=== PATIENT | male | born 1985 | race Caucasian/White ===

== ENCOUNTER → 2016-08-27 | Emergency (ER) | payer OTHER ==
[~2016-08-27] VITALS: Ht 177.8 cm; Wt 61.2 kg
[~2016-08-27] MED LIST: ALBUTEROL SULF8.5 GM INH; ATIVAN1 MG ORAL; ATIVAN2 MG PO; CELEXA20 MG PO; DEPAKOTE250 MG PO; FLOVENT2 PUFF1 INH; GEODON20 MG PO; LORazepam 1mg tab ORAL ONE; WELLBUTRIN SR150 MG PO; ZOFRAN ODT4 MG PO
[2016-08-27 20:07] VITALS: BP 141/95
--- NOTE | 2016-08-27 23:09 | Emergency Room Report ---
History of Present Illness General Chief Complaint: Medication Refill Source: Patient Present Illness HPI Patient is a 31-year-old male who presented after increased anxiety. Patient had run out of his medication which included Ativan. Patient stated he was unable to see his psychiatrist for the next of to 3 days patient is requesting medication refill.The patient denies suicidal thoughts. He denies any auditory or visual hallucinations this time. Allergies: Coded Allergies: No Known Allergies (Unverified , 07/02/12) Patient History Past Medical History: see triage record Reviewed Nursing Documentation: PMH: Agreed, PSxH: Agreed Nursing Documentation-PMH Past Medical History: No History, Except For Hx Asthma: Yes Hx Seizures: Yes - POSSIBLE Review of Systems All Other Systems: negative except mentioned in HPI Physical Exam Vital Signs Date Time Temp Pulse Resp B/P Pulse Ox O2 Delivery O2 Flow Rate FiO2 08/27/16 20:01 97.7 89 14 141/95 99 Room Air General Appearance: well appearing, no apparent distress, alert, GCS 15 Head: normocephalic, atraumatic ENT: hearing grossly normal, normal voice Neck: full range of motion, supple Respiratory: no respiratory distress, speaking full sentences Cardiovascular #1: normal inspection, regular rate, rhythm Gastrointestinal: normal inspection Musculoskeletal: normal inspection, no calf tenderness Neurologic: normal inspection, alert, oriented x3, responsive, ship pilot III-XII nml as tested, normal gait Psychiatric: mood/affect normal, anxious Skin: no rash Medical Decision Making Diagnostic Impression: Primary Impression: Anxiety Additional Impression: Benzodiazepine dependence ER Course The patient presented for medication refill. Patient was noted in history of anxiety. Patient appears to be mildly anxious. The patient was advised that we would not refill his medications for that he should see his primary care physician for this. The patient was given oral Ativan. Patient said he would call a responsible libertarian to pick him up. The patient is advised to follow up with primary care doctor in 1-2 days. Patient is advised to return if any worsening condition or if any changes in status that are concerning. Last Vital Signs Date Time Temp Pulse Resp B/P Pulse Ox O2 Delivery O2 Flow Rate FiO2 08/27/16 20:07 97.7 89 14 141/95 99 Room Air Status: improved Disposition: HOME, SELF-CARE Condition: Stable Referrals: NON PHYSICIAN (PCP) Patient Instructions: Panic Attacks Raf Glover Aug 27, 2016 23:09
== END | disposition home or self-care (01) ==
LOC: EMR 20:30
DX: F41.9 Anxiety disorder, unspecified (principal); F13.20 Sedative, hypnotic or anxiolytic dependence, uncomplicated; J45.909 Unspecified asthma, uncomplicated
CPT/HCPCS: 99283

== ENCOUNTER 2016-10-09 22:43 | Emergency (ER) | payer OTHER ==
[~2016-10-09] VITALS: Ht 177.8 cm; Wt 59.0 kg
[~2016-10-09 22:43] MED LIST changes: -DEPAKOTE250 MG PO; -LORazepam 1mg tab ORAL ONE
[2016-10-09 23:31] VITALS: BP 113/82
[2016-10-09] MEDS ORDERED: DEPAKOTE250 MG PO (23:37)
--- NOTE | 2016-10-09 23:58 | Emergency Room Report ---
History of Present Illness General Chief Complaint: Medication Refill Source: Patient Present Illness HPI Is a 31-year-old male with a history of anxiety. He is taking 3 mg of lorazepam a day. He said he is out of his since yesterday. He felt anxious and hasn't panic attack. He said that he has refill for tomorrow but be something right now. He denies suicidal thought homicidal thought. Unable to sleep because of anxiety. No seizure activity. Allergies: Coded Allergies: No Known Allergies (Unverified , 07/02/12) Patient History Past Medical History: see triage record, old chart reviewed Past Surgical History: none Pertinent Family History: none Social History: Reports: smoking Immunizations: other Reviewed Nursing Documentation: PMH: Agreed, PSxH: Agreed Nursing Documentation-PMH Hx Asthma: Yes Hx Seizures: Yes - POSSIBLE Review of Systems Eye: Denies: blurred vision, eye pain ENT: Denies: ear pain, nose congestion, throat swelling Respiratory: Denies: cough, shortness of breath Cardiovascular: Denies: chest pain, palpitations Gastrointestinal: Denies: abdominal pain, diarrhea, nausea, vomiting Musculoskeletal: Denies: back pain, joint pain Skin: Denies: rash Neurological: Denies: headache, numbness Endocrine: Denies: increased thirst, increased urine Hematologic/Lymphatic: Denies: easy bruising All Other Systems: negative except mentioned in HPI Physical Exam Vital Signs Date Time Temp Pulse Resp B/P Pulse Ox O2 Delivery O2 Flow Rate FiO2 10/09/16 23:31 97.7 87 18 113/82 97 Room Air vitals normal. Sp02 EP Interpretation: reviewed, normal General Appearance: well appearing, no apparent distress, alert Head: normocephalic, atraumatic Eyes: bilateral eye EOMI, bilateral eye PERRL ENT: hearing grossly normal, normal pharynx Neck: full range of motion, supple, no meningismus Respiratory: chest non-tender, lungs clear, normal breath sounds Cardiovascular #1: regular rate, rhythm, no murmur Gastrointestinal: normal bowel sounds, non tender, no mass, no organomegaly, no bruit, non-distended Musculoskeletal: back normal, gait/station normal, normal range of motion Psychiatric: anxious Skin: warm/dry Medical Decision Making Diagnostic Impression: Primary Impression: Anxiety Additional Impressions: Benzodiazepine dependence Encounter for medication refill ER Course patient here for anxiety and has benzodiazepine dependence. I gave him a dose of Ativan here. He can followup tomorrow morning for refill. No evidence of seizure activity. Last Vital Signs Date Time Temp Pulse Resp B/P Pulse Ox O2 Delivery O2 Flow Rate FiO2 10/09/16 23:31 97.7 87 18 113/82 97 Room Air Status: improved Disposition: HOME, SELF-CARE Condition: Stable Additional Instructions: Followup with your DrJay tomorrow for refills. Return if symptom worsen. DAMEON ALDANA M.D. Oct 09, 2016 23:58
[2016-10-10] MEDS ORDERED: LORazepam 1mg tab ORAL ONE
[2016-10-10 00:07] VITALS: BP 113/82
== END 2016-10-10 00:05 | disposition home or self-care (01) ==
LOC: EMR 10-10
DX: F41.9 Anxiety disorder, unspecified (principal); Z76.0 Encounter for issue of repeat prescription; F13.20 Sedative, hypnotic or anxiolytic dependence, uncomplicated; J45.909 Unspecified asthma, uncomplicated; F17.200 Nicotine dependence, unspecified, uncomplicated
CPT/HCPCS: 99282